=== PATIENT | female | born 1960 | race Caucasian/White ===

== ENCOUNTER 2020-06-10 05:46 | Emergency (ER) | payer BC, OTHER ==
[~2020-06-10] VITALS: Ht 162.6 cm; Wt 81.6 kg
[2020-06-10 06:36] VITALS: BP 115/71
[2020-06-10] MEDS ORDERED: cefTRIAXone SOD 1,000 MG VL IM ONE (09:15)
== END 2020-06-10 12:11 | disposition home or self-care (01) ==
LOC: ER 05:46
DX: L03.116 Cellulitis of left lower limb (principal); I89.1 Lymphangitis; E11.9 Type 2 diabetes mellitus without complications
CPT/HCPCS: 93971; 96372; 99284; J0696